=== PATIENT | female | born 1980 | race Caucasian/White ===

== ENCOUNTER → 2018-11-28 14:50 | Outpatient (CLI) | payer OTHER, SELFPAY ==
--- NOTE | 2018-11-28 14:54 | US_ITS ---
PROCEDURE: US TRANSVAGINAL CLINICAL INDICATION: US T/V- RLQP Right Ovarian Cyst Right ovarian cyst COMPARISON: No exams were available for comparison TECHNIQUE: FINDINGS: Uterus is 9 x 4 x 5.4 cm with a combined endometrial thickness of 7 mm. There is a regularity involving the lower uterine segment anteriorly consistent with a scar. No uterine mass evident. Left ovary is 3 x 2.4 cm and contains small follicles. There is a heterogeneous area of echogenicity in the left ovary at 2.3 x 1.5 cm and may represent a hemorrhagic cyst right ovary is 3.6 x 2.2 cm also containing small follicles. There is bilateral ovarian blood flow. There is a small amount of fluid in the cul-de-sac. IMPRESSION: Suspect hemorrhagic cyst of the left ovary otherwise negative pelvic ultrasound. Minimal amount of cul-de-sac fluid Dictated by: Surjit Lal MD 11/28/2018 17:23 Signed by: <Electronically signed by Surjit Lal MD in [facility]> 11/28/2018 17:23
== END ==
PROVIDERS: PCP Nurse Practitioner Obstetrics & Gynecology; Visit Provider Nurse Practitioner Obstetrics & Gynecology
DX: N83.201 Unspecified ovarian cyst, right side (principal); R10.31 Right lower quadrant pain
CPT/HCPCS: 76830